=== PATIENT | male | born 1950 | race Caucasian/White ===

== ENCOUNTER 2021-06-09 18:02 | Inpatient (IN) | payer MEDICARE ==
[~2021-06-09] VITALS: Ht 175.3 cm; Wt 78.3 kg
[2021-06-09] MEDS ORDERED: MULTIVITAMIN200 MCG PO (18:14)
[2021-06-09] MEDS ORDERED: VITAMIN B122500 MCG SL (18:14)
[2021-06-09] MEDS ORDERED: ZYLOPRIM 300MG300 MG PO (18:14)
[2021-06-09] MEDS ORDERED: TOPROL XL100 MG PO (18:14)
[2021-06-09] MEDS ORDERED: LEXAPRO 10MG10 MG PO (18:15)
[2021-06-09] MEDS ORDERED: COZAAR 50MG50 MG/TAB PO (18:15)
--- NOTE | 2021-06-09 20:45 | NUR ---
Patient to medical room 356 at this time. He is drowsy and nonconversant; he does not answer questions or follow commands. He does not appear to be in pain. Heparin gtt infusing at 9.4 ml/hr. HR is tachycardic and lungs have fine crackles in the bases. No edema is noted. Patient has multiple scrapes and bruises on his body and appears unkept. Bed alarm is set and mitts applied, as patient persistantly attempts to remove medical supplies.
[2021-06-09 21:00] VITALS: BP 137/63; PULSE 102; TEMP 97.5
[2021-06-10] VITALS (9 sets, daily range): BP systolic 113–187; BP diastolic 55–83; PULSE 95–135; TEMP 97.4–99.7
[2021-06-10 01:16] LABS: INR 1.2 (0.8-3.0); PROTHROMBIN TIME 13.6 SECONDS (9.7-12.8)
[2021-06-10 01:40] LABS: PARTIAL THROMBOPLASTIN TIME > 400.0 SECONDS (26.0-37.0)
[2021-06-10 02:07] LABS: CALCIUM 8.6 mg/dL (8.4-10.2); CREATININE, serum 0.88 (0.66-1.25); POTASSIUM 3.2 mmol/L (3.4-5.0)
--- NOTE | 2021-06-10 05:20 | NUR ---
2 mg Ativan administered at 0100 per [facility] protocol. Patient is now much more calm and has rested on and off throughout the night. Heparin has been paused per protocol and awaiting results of new Hep Xa. Zosyn infusing into right arm and potassium replacement infusing into left arm. Patient has been incontinent of bowel and linen change is also provided at this time.
[2021-06-10 08:34] LABS: MEAN CELL VOLUME 107 fl (80.0-100.0); MEAN CORPUSCULAR HGB CONC 34 g/dl (33.0-37.0); PLATELET COUNT 57 K/mm3 (130-400); RED BLOOD COUNT 2.67 M/mm3 (4.20-5.60); REDCELL DISTRIBUTION WIDTH-CV 15.2 % (11.5-14.5)
[2021-06-10 08:46] LABS: CALCIUM 8.2 mg/dL (8.4-10.2); CREATININE, serum 0.85 (0.66-1.25); POTASSIUM 3.7 mmol/L (3.4-5.0)
[2021-06-10 08:52] LABS: PARTIAL THROMBOPLASTIN TIME 177.7 SECONDS (26.0-37.0)
[2021-06-10 09:09] LABS: HEMATOCRIT 28.5 % (42.0-52.0); HEMOGLOBIN 9.7 g/dl (13.5-18.0); MEAN CORPUSCULAR HEMOGLOBIN 36 pg (27.0-31.0)
[2021-06-10 09:14] LABS: ANISOCYTOSIS 1+; BAND 4 % (0-10); LYMPHOCYTE 9 % (20.0-51.0); NEUTROPHILS 83 % (42.0-75.2); PLATELET ESTIMATE DECREASED (NORMAL)
--- NOTE | 2021-06-10 13:55 | NUR ---
Primary nurse was assisted with [id number] patient care by [employer] student Slade Alcocer and [employer] instructor Summer Toledo MSN, RN
--- NOTE | 2021-06-10 16:42 | NUR ---
The patient is wearing mits. LORA met with the patient to discuss discharge plan. The patient was falling asleep during intake. The patient states that he lives alone in [place]. He states that he is not , does not have any children, and that he has two siblings: Danis and Joan. He does not know their phone numbers. A Roderick Bates (ph#[phone]) is listed as his emergency contact. The patient states that Roderick is his friend. LORA contacted Roderick to complete intake. Roderick confirms that the patient lives alone. He states that he went to deliver food to the patient, but that he was not answering his door. He states that he then called the patient's dialysis social worker. He reports that the patient's PCP is Dr. Ayush Russo in [place]. Roderick states that he is unsure if he has Danis or Joan's phone number. He states that he will try and get ahold of the patient's dialysis social worker and have them call this dialysis social worker. LORA contacted [facility] and obtained two phone numbers for the patient's sister, Joan. One was not a working phone number. The other was [phone]. LORA then contacted the patient's PCP office and inquired a phone number for the patient's brother, Danis (ph#[phone]). They did not have a DPOA-HC on file for the patient. LORA attempted to contact both Danis an Joan. LORA left them voicemails. LORA then received a phone call from Ca Leo, the patient's dialysis social worker at [facility]. Ca report that [facility] is an all inclusive care program in the home for longterm eligible patients. She reports that they provide home health services to the patients. She reports that the patient was receiving home support services one a week. She reports that the patient had a similiar incident back in April and then went to [facility] for SNF and just got out on 05/07. Ca confirms that she does not believe the patient has a DPOA-HC. She reports that Roderick has been his emergency contact. LORA updated Ca on the patient's status and therapy's recommendation for SNF. Ca reports that the patient's insurance is in network with [facility] and to start with them again. LORA to attempt to get in contact with the patient's family again and will continue to follow.
--- NOTE | 2021-06-10 19:18 | NUR ---
Patient has been incontinent of bowel 2 times today. Crawley remains in place and draining well. Patient did pull out 1 of his 3 IVs. Patient remains on heparin drip, Hep Xa has been drawn. Mitts were placed since patient has been pulling at IVs and crawley.
--- NOTE | 2021-06-10 19:20 | NUR ---
Report received, assumed care for cage shift manager. Assessment complete. Patient is alert but not oriented. Talking to people in room who are note there. VS stable. IVs to right wrist and right forearm. Heparin restarted prior to my shift at 4.5ml/hr. Unalbe to communicate with patient or provide teaching. Does not appear to be in martin but has numerous abrasion to both lower and upper extremities. Also noted to have bruising to lips and laceration in mouth. Call light in reach/bed alarm on. Will monitor.
[2021-06-10 22:37] LABS: FOLATE (FOLIC ACID) 12.6 ng/mL (2.0-20.0)
[2021-06-11] VITALS (9 sets, daily range): BP systolic 103–165; BP diastolic 58–109; PULSE 89–129; TEMP 97.2–101
--- NOTE | 2021-06-11 06:41 | NUR ---
Rested off and on this shift. Denied pain/nausea. Short of breath with activity. Scored 6-10 on detox protocol. Remained confused. Heparin gtt infusing @7ml/hr. Denies needs. Call light in reach. Will monitor,.
[2021-06-11 09:48] LABS: BASO % 0.3 % (0.0-2.0); EOS # 0.1 (0.0-0.7); EOS % 1.4 % (0-4.0); GRAN # 6.3 (1.4-6.5); GRAN % 78.5 % (42.2-75.2); LYMPH # 1.1 (1.2-3.4); LYMPH % 13.7 % (20.0-51.0); MEAN CELL VOLUME 106 fl (80.0-100.0); MEAN CORPUSCULAR HGB CONC 34 g/dl (33.0-37.0); MEAN PLATELET VOLUME 12.1 fl (7.4-10.4); MONO # 0.5 (0.1-0.6); MONO % 5.7 % (1.7-9.3); PLATELET COUNT 52 K/mm3 (130-400); RED BLOOD COUNT 2.72 M/mm3 (4.20-5.60); REDCELL DISTRIBUTION WIDTH-CV 15.3 % (11.5-14.5)
[2021-06-11 09:50] LABS: HEMATOCRIT 28.9 % (42.0-52.0); HEMOGLOBIN 9.8 g/dl (13.5-18.0); MEAN CORPUSCULAR HEMOGLOBIN 36 pg (27.0-31.0)
--- NOTE | 2021-06-11 09:58 | NUR ---
Patient laying in bed. Currently NPO for brain MRI. Patient has been hallucinating seahorses.
[2021-06-11 09:59] LABS: ALBUMIN 3.8 gm/dL (3.5-5.0); BILIRUBIN,TOTAL 1.5 mg/dL (0.0-1.0); CALCIUM 8.9 mg/dL (8.4-10.2); CHOLESTEROL RISK RATIO 2.1; CREATININE, serum 0.98 (0.66-1.25); POTASSIUM 3.1 mmol/L (3.4-5.0); TOTAL PROTEIN 7.2 gm/dL (6.4-8.2)
--- NOTE | 2021-06-11 10:39 | NUR ---
The patient's brother, Danis, returned LORA's phone call. Danis reports that him and his sister do not have the best relationship with the patient, due to his alcoholism, but they are aware they are his next of kin. Danis reports that he will let their sister, Joan, know that the patient is here. He would like an update on the patient's status. LORA updated the patient's RN on the above and that the patient's siblings are his next of kin.
--- NOTE | 2021-06-11 11:12 | NUR ---
LORA contacted and faxed a referral to Anitha at [facility]. Awaiting screen.
--- NOTE | 2021-06-11 14:32 | NUR ---
Primary nurse was assisted with [id number] patient care by [employer] student Slade Alcocer and [employer] instructor Summer Toledo MSN, RN
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
--- NOTE | 2021-06-11 20:30 | NUR ---
Initial shift assessment done- confused- calling out at times, mitts on, right now he is fairly calm-resting on and off, 02 at 3L/nc, Tele on, heparin drip at 12cc/hr, has JOSE PICC, Harkins with tea colored cloudy urine- seizure pads on-on detox protocol
[2021-06-12] VITALS (10 sets, daily range): BP systolic 104–174; BP diastolic 65–93; PULSE 92–132; TEMP 98.1–99.1
--- NOTE | 2021-06-12 05:18 | NUR ---
Has received Ativan IV x3 so far this shift for detox scores 3-6 VSS, mitts remain on, remains lethargic,confused, does not try to get out of bed-
--- NOTE | 2021-06-12 07:30 | NUR ---
PT TACHYPNIC WITH ABNORMAL VITALS, NOTIFIED MARY SNOW, ORDERS FOLLOWED, NO OHTER NEEDS
--- NOTE | 2021-06-12 07:37 | NUR ---
CALL FROM TELE STATING LEADS COMING OFF OF PT, TELE SHOWING TACHYCARDIA 130'S, PT DENIES CHEST PAIN, REPORTS BACK PAIN, VITALS TAKEN, PT HYPERTENSIVE, TACHYPNIC, O2 SAT 86% ON 3L NC, TITRATED TO 5L AND PT SATTING 93%, MARY SNOW NOTIFIED AND ORDERS PLACED. CALLED RT FOR EKG AND CALLED RADIOLOGY FOR XRAY.
[2021-06-12 07:43] LABS: BASO % 0.4 % (0.0-2.0); EOS # 0.1 (0.0-0.7); EOS % 0.6 % (0-4.0); GRAN # 5.8 (1.4-6.5); GRAN % 74.7 % (42.2-75.2); LYMPH # 0.9 (1.2-3.4); LYMPH % 11.8 % (20.0-51.0); MEAN CELL VOLUME 107 fl (80.0-100.0); MEAN CORPUSCULAR HGB CONC 33 g/dl (33.0-37.0); MEAN PLATELET VOLUME 11.6 fl (7.4-10.4); MONO # 0.9 (0.1-0.6); MONO % 11.6 % (1.7-9.3); PLATELET COUNT 59 K/mm3 (130-400); RED BLOOD COUNT 2.35 M/mm3 (4.20-5.60); REDCELL DISTRIBUTION WIDTH-CV 15.4 % (11.5-14.5)
[2021-06-12 07:44] LABS: HEMATOCRIT 25.1 % (42.0-52.0); HEMOGLOBIN 8.2 g/dl (13.5-18.0); MEAN CORPUSCULAR HEMOGLOBIN 35 pg (27.0-31.0)
[2021-06-12 07:50] LABS: ALBUMIN 3.5 gm/dL (3.5-5.0); BILIRUBIN,TOTAL 1.1 mg/dL (0.0-1.0); CALCIUM 8.7 mg/dL (8.4-10.2); CREATININE, serum 0.98 (0.66-1.25); MAGNESIUM 1.5 mg/dL (1.6-2.3); POTASSIUM 3.5 mmol/L (3.4-5.0); TOTAL PROTEIN 6.7 gm/dL (6.4-8.2)
[2021-06-12 07:59] LABS: COLLECTION METHOD IN
[2021-06-12 08:18] LABS: AMORPHOUS CRYSTAL Present /uL; PH 5 (5-8); SQUAMOUS EPITHELIAL 0-2 /hpf; URINE APPEARANCE Turbid; URINE BACTERIA Moderate /hpf; URINE BILIRUBIN Negative (NEGATIVE); URINE BLOOD 3+ (NEGATIVE); URINE COLOR Amber; URINE GLUCOSE Negative (NEGATIVE); URINE KETONE Trace (NEGATIVE); URINE LEUKOCYTE ESTERASE 1+ (NEGATIVE); URINE NITRATE Negative (NEGATIVE); URINE PROTEIN(semi-quant) 2+ (NEGATIVE); URINE RBC >50 /hpf; URINE UROBILINOGEN Negative (NEGATIVE)
[2021-06-12 10:53] LABS: ARTERIAL BLD GAS O2 SATURATION 91.5 % (92-100); ARTERIAL BLD GAS TCO2 CT 19.3; ARTERIAL BLOOD GAS HCO3 18.5 meq/L (22-26); ARTERIAL BLOOD GAS PCO2 24.6 mmHg (35-45); ARTERIAL BLOOD GAS PO2 63.4 mmHg (80-100)
--- NOTE | 2021-06-12 17:37 | NUR ---
UNEVENTFUL SHIFT, PT IN BED, NOT REQUIRING ATIVAN PER DETOX SCALE, PT REPORTED PAIN IN LOW BACK RELIEVED BY TYLENOL, GOOD OUTPUT FROM [facility] OF STOOL X1, NO OTHER NEEDS.
--- NOTE | 2021-06-12 17:54 | NUR ---
UPON 1800 VITALS PT FOUND TRYING TO GET OUT OF BED. ATIVAN GIVEN AND PT READJUSTED.
--- NOTE | 2021-06-12 20:30 | NUR ---
Initial shift assessment done- pt has been sleeping since the start of shift, calm, VSS, when called name, will awaken for few minutes- confused, mitts on, Heparin drip continues at 13.5cc/hr, Harkins with clear guero urine, Tele on.
[2021-06-13] VITALS (9 sets, daily range): BP systolic 101–144; BP diastolic 51–83; PULSE 73–110; TEMP 97.3–98
--- NOTE | 2021-06-13 06:03 | NUR ---
Did not require any Ativan this shift- has been calm, remains partially oriented- I did remove the mitts, VSS--slept a good 6 -7 hours total last night. Did wake up around 0130 this morning and was talking clearly- wanted to get up to BSC- did get up with 2 assists- had a liquid stool, back to bed, did try to do some mouth care on patient,old blood in mouth,, pt was hungry- did feed pt a jello and a applesauce- took some time due to patients painful mouth, did drink sips of some sprite-was ok unless he took bigs gulps- then would cough. Needs assistance with food/drink
[2021-06-13 07:24] LABS: BASO % 0.2 % (0.0-2.0); GRAN % 80.7 % (42.2-75.2); LYMPH # 0.5 (1.2-3.4); MEAN CELL VOLUME 108 fl (80.0-100.0); MEAN CORPUSCULAR HGB CONC 33 g/dl (33.0-37.0); MEAN PLATELET VOLUME 11.7 fl (7.4-10.4); MONO # 0.4 (0.1-0.6); MONO % 8.9 % (1.7-9.3); PLATELET COUNT 86 K/mm3 (130-400); REDCELL DISTRIBUTION WIDTH-CV 15.4 % (11.5-14.5)
[2021-06-13 07:28] LABS: HEMATOCRIT 26.9 % (42.0-52.0); HEMOGLOBIN 8.9 g/dl (13.5-18.0); MEAN CORPUSCULAR HEMOGLOBIN 36 pg (27.0-31.0)
[2021-06-13 07:40] LABS: ALBUMIN 3.4 gm/dL (3.5-5.0); BILIRUBIN,TOTAL 0.7 mg/dL (0.0-1.0); CALCIUM 8.9 mg/dL (8.4-10.2); CREATININE, serum 0.96 (0.66-1.25); MAGNESIUM 2.5 mg/dL (1.6-2.3); POTASSIUM 3.9 mmol/L (3.4-5.0); TOTAL PROTEIN 6.7 gm/dL (6.4-8.2)
--- NOTE | 2021-06-13 09:38 | NUR ---
PT PLEASANT AOX3, DENIES PAIN, PT MUCH MORE ALERT TO SURROUNDINGS, OBEYED COMMANDS FOR NEURO CHECK, TOOK PILLS WITH APPLESAUCE, PT NOT CHOKING ON THIN LIQUIDS OR APPLESAUCE. PT ATE 100% OF BREAKFAST. KEPT SAYING "I WANNA GET OUT OF THIS BED". EDUCATED HIM TO WAIT FOR THERAPY TO MOVE AROUND.
--- NOTE | 2021-06-13 17:19 | NUR ---
PT MORE ALERT, LESS CONFUSED, SPEECH COMPREHENSIBLE, ONE ASSIST WITH PHYSICAL THERAPY, PT HAD BM IN TOILET, LOW URINE OUTPUT TODAY, HEPXA GOAL X1, PT INC ORAL INTAKE, EATING 100% OF MEALS. PT TOLD PHYSICAL THERAPY HE HAS A COURT MEETING ON MONDAY FOR A DUI AND OWES 5 DAYS OF "LONGTERM TIME". SOCIAL WORK NOTIFIED OF SITUATION.
--- NOTE | 2021-06-13 21:40 | NUR ---
HEP XA: 0.26 AT 2140. NO CHANGE MADE TO DRIP. AT 1250 UNITS PER HR.
[2021-06-14] VITALS (13 sets, daily range): BP systolic 105–143; BP diastolic 42–67; PULSE 64–87; TEMP 97.7–98.4
[2021-06-14 05:34] LABS: BASO % 0.1 % (0.0-2.0); GRAN # 6.2 (1.4-6.5); GRAN % 83.3 % (42.2-75.2); LYMPH # 0.5 (1.2-3.4); MEAN CELL VOLUME 108 fl (80.0-100.0); MEAN CORPUSCULAR HGB CONC 33 g/dl (33.0-37.0); MEAN PLATELET VOLUME 11.8 fl (7.4-10.4); MONO # 0.7 (0.1-0.6); MONO % 9.9 % (1.7-9.3); PLATELET COUNT 101 K/mm3 (130-400); RED BLOOD COUNT 2.13 M/mm3 (4.20-5.60); REDCELL DISTRIBUTION WIDTH-CV 15.6 % (11.5-14.5)
[2021-06-14 05:38] LABS: HEMATOCRIT 22.9 % (42.0-52.0); HEMOGLOBIN 7.6 g/dl (13.5-18.0); MEAN CORPUSCULAR HEMOGLOBIN 36 pg (27.0-31.0)
[2021-06-14 05:46] LABS: ALBUMIN 2.9 gm/dL (3.5-5.0); BILIRUBIN,TOTAL 0.4 mg/dL (0.0-1.0); CALCIUM 8.6 mg/dL (8.4-10.2); CREATININE, serum 1.06 (0.66-1.25); POTASSIUM 4.2 mmol/L (3.4-5.0); TOTAL PROTEIN 5.8 gm/dL (6.4-8.2)
--- NOTE | 2021-06-14 13:49 | NUR ---
LORA contated [facility] and left a message for Anitha to follow up on the referral. SW to fax updates to [facility]. [facility]: #[phone] fax#[phone] The patient also notified staff and this SW that he is concerned about his court date tomorrow at [facility]. LORA contacted [facility] and [facility] [address]. Both courts report that the patient does not have any active cases or court dates. LORA updated the patient.
--- NOTE | 2021-06-14 18:26 | NUR ---
Patient napped frequently throughout the day, was easy to arouse and alert. Patient's only complaint was about being NPO for his lexiscan. Patient is currently eating supper and doing well. There are no concerns at this time.
--- NOTE | 2021-06-14 21:32 | NUR ---
Patient resting in bed with eyes closed upon enter the room. Patient easily wake up with voice and touch. Patient denies any pain or discomfort. Denies SOB, N/V, or diarrhea. VS stable. Right upper arm PICC site dressing C/D/I. Scheduled meds given. Call light in reach. Aspiration precaution and seizure precaution maintained. Will continue to monitor.
[2021-06-15] VITALS (12 sets, daily range): BP systolic 116–151; BP diastolic 54–96; PULSE 65–80; TEMP 97.6–98.6
--- NOTE | 2021-06-15 06:52 | NUR ---
Patient slept well over the night. Patient scores 0 on CIWA protocol throughout the night. VS stable. No acute distress noted. Call light in reach.
[2021-06-15 07:04] LABS: GRAN # 3.9 (1.4-6.5); GRAN % 78.7 % (42.2-75.2); LYMPH # 0.5 (1.2-3.4); LYMPH % 9.1 % (20.0-51.0); MEAN CELL VOLUME 109 fl (80.0-100.0); MEAN CORPUSCULAR HGB CONC 33 g/dl (33.0-37.0); MEAN PLATELET VOLUME 11.8 fl (7.4-10.4); MONO # 0.5 (0.1-0.6); PLATELET COUNT 123 K/mm3 (130-400); RED BLOOD COUNT 2.07 M/mm3 (4.20-5.60); REDCELL DISTRIBUTION WIDTH-CV 15.3 % (11.5-14.5)
[2021-06-15 07:11] LABS: HEMATOCRIT 22.5 % (42.0-52.0); HEMOGLOBIN 7.4 g/dl (13.5-18.0); MEAN CORPUSCULAR HEMOGLOBIN 36 pg (27.0-31.0)
[2021-06-15 07:13] LABS: CALCIUM 8.7 mg/dL (8.4-10.2); CREATININE, serum 0.97 (0.66-1.25)
--- NOTE | 2021-06-15 07:28 | NUR ---
Bedside report complete, report received from COLLEEN Edward. Pt. resting in bed w/ eyes closed. Bed alarm on, call light in reach.
--- NOTE | 2021-06-15 11:00 | NUR ---
Harkins cath removed per order of EDY Lebron.
--- NOTE | 2021-06-15 14:58 | NUR ---
LORA contacted Ca, social work administrator, at [facility] to inquire if the patient has other facilities that are network with his insurance, in the event that [facility] declines. Ca reports that she has been in contact with [facility] and they had informed her that they were going to accept the patient. LORA attempted to contact Anitha at [facility] to follow up. The center receptionist reports that Anitha is in a meeting until 1600 today and that LORA could call back tomorrow morning. LORA faxed updates to [facility]. LORA contacted and updated the patient's brother, Danis, of the d/c plan. Danis was in agreement to the plan.
--- NOTE | 2021-06-15 18:00 | NUR ---
Pt. progressing w/ plan of care. Plan was for pt. to get a cardiac cath today but provider availability and time postponed the cath until tomorrow. Pt.'s crawley was removed per EDY Lebron verbal order. Pt. was able to void clear yellow urine in the urinal. Pt. worked with PT and tolerated well. Pt. was able to eat dinner and will be NPO at midnight tonight for cardiac cath around 1100 or 1200 tomorrow. Call light and belongings in reach, bed alarm on.
--- NOTE | 2021-06-15 23:07 | NUR ---
Patient receiving 1 unit of PRBC upon shift start. Patient denies any chest pain, SOB, N/V or diarrhea. VS stable. Blood transfusion completed around 20:45 pm. Patient tolerated well. Bed alarms was going off around 9pm, and when this nurse enter the room, patient was standing up and using urinal. Noticed some urine spilled on the floor. Patient appears very frustrated. Patient states too many wired hooked up to him and he can't move around easily. Patient states he was trying to use urinal and couldn't move his arms well and made accident on the floor. Encouraged patient to use call light to call for help. Patient verbalized understanding. Call light in reach. Bed alarms on. Will continue to monitor.
[2021-06-16] VITALS (13 sets, daily range): BP systolic 131–162; BP diastolic 48–75; PULSE 64–79; TEMP 97.5–98.3
--- NOTE | 2021-06-16 06:13 | NUR ---
Patient remained NPO from midnight. No cute distress noted throughout the night. Call light in reach.
[2021-06-16 07:22] LABS: GRAN # 5.1 (1.4-6.5); LYMPH # 0.5 (1.2-3.4); MEAN CELL VOLUME 107 fl (80.0-100.0); MEAN CORPUSCULAR HGB CONC 32 g/dl (33.0-37.0); MEAN PLATELET VOLUME 11.4 fl (7.4-10.4); MONO # 0.6 (0.1-0.6); MONO % 9.9 % (1.7-9.3); PLATELET COUNT 142 K/mm3 (130-400); RED BLOOD COUNT 2.48 M/mm3 (4.20-5.60); REDCELL DISTRIBUTION WIDTH-CV 18.7 % (11.5-14.5)
[2021-06-16 07:25] LABS: HEMATOCRIT 26.5 % (42.0-52.0); HEMOGLOBIN 8.5 g/dl (13.5-18.0); MEAN CORPUSCULAR HEMOGLOBIN 34 pg (27.0-31.0)
[2021-06-16 07:39] LABS: CALCIUM 8.8 mg/dL (8.4-10.2); CREATININE, serum 0.84 (0.66-1.25); POTASSIUM 4.3 mmol/L (3.4-5.0)
--- NOTE | 2021-06-16 07:39 | NUR ---
Report received from COLLEEN Edward. Pt. resting in bed, eyes closed. Bed alarm on, call light in reach. Pt. has been NPO since midnight for cardiac cath today.
--- NOTE | 2021-06-16 10:56 | NUR ---
Pt. progressing w/ plan of care. Pt. was able to ambulate to the bathroom w/ rolling walker and gait belt and one staff member by his side. Pt. was able to move his bowels. Speech therpay and cardiology in to see patient this AM. Plan is for cardiac cath today around 1100 or 1200 today. No calls yet regarding patient pickup. Physical therapy also in to check on pt. at this time. Bed alarm on, call light in reach.
--- NOTE | 2021-06-16 11:07 | NUR ---
The PA notified LORA that they would be ready to d/c the patient tomorrow, 06/17. Dione, at [facility], returned LORA's phone call. LORA updated her about the discharge date. Dione reports that they are able to take the patient, but was under the impression that the patient's insurance would want him to go to one of their facilities, before coming to them. She reports that she would also need auth from his insurance. LORA contacted Ca, social media intern, with the patient's insurance and updated her on the above. Ca reports that there is not availability in their facilities and that they would plan for the patient to go to [facility] from the hospital. Ca reports that they will send auth to [facility] and that they can provide transporation for the patient. A tentative transport time was set up or 1300 tomorrow. LORA updated Dione at [facility]. LORA contacted and updated the patient's brother, Danis. Danis is in agreement to the plan. *Discharge plan: [facility] SNF*
--- NOTE | 2021-06-16 13:19 | NUR ---
Pt. back from cardiac cath. Pt. alert and answering questions. Frequent vital signs in place. Pt. voided using the urinal. Lunch called, pt. reports he is hungry. All circulation checks WNL. Call light and belonings in reach, bed alarm on.
--- NOTE | 2021-06-16 18:40 | NUR ---
Pt.'s TR band has been removed, site is C/D/I. No s/s hematoma and no bleeding issues. Pt. has +CSM of all extremities. Pt. ate dinner and tolerated it well. Good urine output after dose of lasix in the [employer]. Bed alarm on, call light in reach.
--- NOTE | 2021-06-16 20:30 | NUR ---
PATIENT IS CALM IN THE ROOM.DENIES PAIN.MEDICATION GIVEN.SAFETY MEASURES IN PLACE.NO OTHER NEEDS AT THIS TIME.
[2021-06-17 04:33] VITALS: BP 135/55; PULSE 73; TEMP 97.7
--- NOTE | 2021-06-17 04:57 | NUR ---
PATIENT HAD A CALM NIGHT.SAFETY MEASURES IN PLACE.NO OTHER NEEDS AT THIS TIME.
[2021-06-17 06:36] LABS: MEAN CELL VOLUME 104 fl (80.0-100.0); MEAN CORPUSCULAR HGB CONC 33 g/dl (33.0-37.0); MEAN PLATELET VOLUME 11.3 fl (7.4-10.4); PLATELET COUNT 175 K/mm3 (130-400); RED BLOOD COUNT 2.51 M/mm3 (4.20-5.60); REDCELL DISTRIBUTION WIDTH-CV 18.8 % (11.5-14.5)
[2021-06-17 06:37] LABS: HEMATOCRIT 26.2 % (42.0-52.0); HEMOGLOBIN 8.6 g/dl (13.5-18.0); MEAN CORPUSCULAR HEMOGLOBIN 34 pg (27.0-31.0)
[2021-06-17 06:50] LABS: CALCIUM 8.4 mg/dL (8.4-10.2); CREATININE, serum 0.96 (0.66-1.25); MAGNESIUM 1.7 mg/dL (1.6-2.3)
--- NOTE | 2021-06-17 07:04 | NUR ---
Bedside report complete. Pt. OOB to the bathroom trying to move his bowels. Pt. frustrated with the tele and the split in place to remind him to not use his right wrist because of the cardiac cath yesterday. Pt. using the urinal, urine is clear and yellow. Pt. was able to ambulate w/ walker and gait belt, steady gait noted. Will reccommend pt. to sit up in the chair to help w/ lung expansion.
[2021-06-17 08:06] VITALS: BP 136/55; PULSE 64; TEMP 98.2
[2021-06-17] MEDS ORDERED: LEVAQUIN 750MG750 M1 PO (09:45)
[2021-06-17] MEDS ORDERED: IPRATROPIUM BROM3 M1 IH (09:47)
[2021-06-17] MEDS ORDERED: PLAVIX 75MG TAB75 MG PO (09:48)
[2021-06-17] MEDS ORDERED: LIPITOR20 MG PO (09:48)
[2021-06-17] MEDS ORDERED: NICODERM C14 MG/PATC TD (09:48)
[2021-06-17] MEDS ORDERED: TYLENOL 325MG325 MG PO (09:49)
[2021-06-17] MEDS ORDERED: ALDACTONE 25MG25 M1 PO (09:49)
[2021-06-17] MEDS ORDERED: ASPIRIN E.C. 8181 MG PO (09:49)
[2021-06-17] MEDS ORDERED: FOLIC ACID 11 MG/TA1 PO (09:51)
[2021-06-17] MEDS ORDERED: KEPPRA 500MG500 MG PO (09:51)
[2021-06-17] MEDS ORDERED: THIAMINE 1100 MG/TAB PO (09:51)
[2021-06-17] MEDS ORDERED: MEDROL 4MG DOSPA4 MG PO (09:52)
[2021-06-17] MEDS ORDERED: TOPROL XL100 MG PO (10:04)
[2021-06-17] MEDS ORDERED: COZAAR 50MG50 MG/TAB PO (10:04)
[2021-06-17] MEDS ORDERED: VITAMIN B122500 MCG SL (10:05)
[2021-06-17] MEDS ORDERED: LEXAPRO 10MG10 MG PO (10:05)
[2021-06-17] MEDS ORDERED: DUO-KAPS1 CAP PO (10:06)
[2021-06-17] MEDS ORDERED: ZYLOPRIM 300MG300 MG PO (10:08)
--- NOTE | 2021-06-17 11:39 | NUR ---
Dione, at [facility], left LORA a voicemail; stating that they would be able to accept the patient and that they would just require a COVID test. LORA notified the PA. The patient's COVID results came back negative. LORA faxed the results to [facility]. [facility] states that they are [facility] out of [place], [place] for the clinical team to send his prescriptions to. . LORA faxed the patient's scripts to [facility]. The patient is to discharge today, 06/17, to [facility] for a skilled stay. Transportation was scheduled at 1300. via the patient's insurance. LORA informed the patient's RN, Devon at [facility], and his brother, Danis, of the time. They were both agreeable to the time. No additional needs at this time.
[2021-06-17 12:00] VITALS: BP 153/84; PULSE 88; TEMP 97.8
--- NOTE | 2021-06-17 13:50 | NUR ---
Pt. discharged to [facility]. Pt. picked up by staff member Gagandeep. Pt. left floor with manager nursing home Olivia. Pt. was made aware his brother Danis was willing to bring clothes if pt. wanted. Pt. did not seem interested. Danis reports he will go see the pt. in the [facility] home next week. Report to be called to jail staff member.
--- NOTE | 2021-06-17 14:00 | NUR ---
Primary nurse was assisted with [id number] patient care by [employer] [facility] Olivia Pelletier and [employer] instructor Summer Toledo MSN, RN
== END 2021-06-17 14:06 | DRG 853 ==
LOC: MEDICAL 18:02
PROVIDERS: Nurse Practitioner Family; Pediatrics; Physician Assistant
PROC: 02HV33Z Insertion of Infusion Device into Superior Vena Cava, Percutaneous Approach (ICD-10-PCS; 2021-06-11)
PROC: 027034Z Dilation of Coronary Artery, One Artery with Drug-eluting Intraluminal Device, Percutaneous Approach (ICD-10-PCS; principal; 2021-06-16)
PROC: 4A023N7 Measurement of Cardiac Sampling and Pressure, Left Heart, Percutaneous Approach (ICD-10-PCS; 2021-06-16)
PROC: B2111ZZ Fluoroscopy of Multiple Coronary Arteries using Low Osmolar Contrast (ICD-10-PCS; 2021-06-16)
DX: A41.9 Sepsis, unspecified organism (principal); I21.4 Non-ST elevation (NSTEMI) myocardial infarction; J96.01 Acute respiratory failure with hypoxia; G93.40 Encephalopathy, unspecified; E87.3 Alkalosis; M62.82 Rhabdomyolysis; E87.1 Hypo-osmolality and hyponatremia; I50.22 Chronic systolic (congestive) heart failure; F10.239 Alcohol dependence with withdrawal, unspecified; N39.0 Urinary tract infection, site not specified; Z20.822 Contact with and (suspected) exposure to COVID-19; I11.0 Hypertensive heart disease with heart failure; I25.10 Atherosclerotic heart disease of native coronary artery without angina pectoris; E02 Subclinical iodine-deficiency hypothyroidism; D69.6 Thrombocytopenia, unspecified; S00.531A Contusion of lip, initial encounter; I45.10 Unspecified right bundle-branch block; I08.3 Combined rheumatic disorders of mitral, aortic and tricuspid valves; D53.9 Nutritional anemia, unspecified; G31.9 Degenerative disease of nervous system, unspecified; E87.6 Hypokalemia; E83.42 Hypomagnesemia; R73.9 Hyperglycemia, unspecified; E87.8 Other disorders of electrolyte and fluid balance, not elsewhere classified; R00.0 Tachycardia, unspecified; R44.1 Visual hallucinations; R53.81 Other malaise; W19.XXXA Unspecified fall, initial encounter; F17.210 Nicotine dependence, cigarettes, uncomplicated
CPT/HCPCS: 99223-AI; 99232-AI; 99233-AI; 99239; A9500; A9585; C1725; C1751; C1769; C1874; C1887; C9600; J0456; J0692; J1644; J1650; J1940; J1953; J1956; J2060; J2250; J2543; J2785; J2920; J3010; J3475; J3480; J7030; J7050; P9016